=== PATIENT | female | born 1995 | race Caucasian/White ===

== ENCOUNTER 2016-12-03 01:34 | Emergency (ER) | payer SELFPAY ==
[~2016-12-03] VITALS: Ht 162.6 cm; Wt 55.8 kg
[2016-12-03 01:50] VITALS: BP 124/63; PULSE 84; RESP 13; TEMP 97.8; O2SAT 98
--- NOTE | 2016-12-03 01:50 | NUR ---
Patient to ER bed 6 to gown for evaluation. Side rails up. Report given to IFEANYI Harman.
--- NOTE | 2016-12-03 02:00 | NUR ---
Patient to ER C/O scratched throat. Patient states that she ate chicken nuggets and swallowed a bone which scratched her throat. Patient states that she still feels that she has something stuck in her throat. Patient is 14 weeks and states that she is "worried that the bone can get to the baby and harm it" AAOx4, unlabored breathing, no signs of acute distress.
--- NOTE | 2016-12-03 02:12 | NUR ---
ER MD Arreola at bedside for evaluation
--- NOTE | 2016-12-03 02:35 | NUR ---
Patient refused Xray. ER MD Arreola aware.
[2016-12-03] MEDS ORDERED: PREN-89 PO (02:51)
--- NOTE | 2016-12-03 02:52 | NUR ---
Patient refuses admission. ER MD Arreola aware.
--- NOTE | 2016-12-03 02:52 | NUR ---
Medication reconciliation completed with information provided by - verbal from patient. Any prior medication reconciliation on file was reviewed and corrected.
--- NOTE | 2016-12-03 02:57 | NUR ---
ER MD Arreola at bedside discussing the reason for admission and the risks of the medical conditions patient is experiencing.
--- NOTE | 2016-12-03 03:00 | NUR ---
Patient does not wish to proceed with medical care recommended by ER MD Arreola. Patient given information related to possible complications, up to and including , which could occur as a result of leaving hospital at this time. Patient verbalizes understanding of risks involved leaving against medical advice. Patient has signed AMA form.
[2016-12-03 03:01] LABS: BASOPHILS # (AUTO) 0.1 K/uL (0.0-0.2); BASOPHILS % (AUTO) 0.5 % (0.0-2.0); EOSINOPHILS # (AUTO) 0.1 K/uL (0.0-0.4); EOSINOPHILS % (AUTO) 1.1 % (0.0-4.0); HEMATOCRIT 37.2 % (36-48); HEMOGLOBIN 12.8 g/dL (12.0-16.0); LYMPHOCYTES # (AUTO) 2.7 K/uL (1.0-5.5); LYMPHOCYTES % (AUTO) 24.5 % (20.5-51.5); MEAN CORPUSCULAR HEMOGLOBIN 30 pg (27-31); MEAN CORPUSCULAR HGB CONC 34 % (32-36); MEAN CORPUSCULAR VOLUME 87 fL (79.0-98.0); MONOCYTES # (AUTO) 0.5 K/uL (0.0-1.0); MONOCYTES % (AUTO) 4.2 % (1.7-9.3); NEUTROPHILS # (AUTO) 7.7 K/uL (1.8-7.7); NEUTROPHILS % (AUTO) 69.7 % (40.0-70.0); PLATELET COUNT (AUTO) 298 K/uL (130-430); RED CELL DISTRIBUTION WIDTH 12.9 % (9.0-15.0); WHITE BLOOD COUNT (AUTO) 11.1 K/uL (4.8-10.8)
[2016-12-03 03:05] LABS: CALCIUM 8.8 mg/dL (8.4-11.0); CREATININE 0.48 mg/dL (0.55-1.30); POTASSIUM 3.3 mmol/L (3.5-5.1)
[2016-12-03 03:09] LABS: INR 0.9 (0.8-1.2); PROTHROMBIN TIME 9.6 SECS (9.5-12.5)
[2016-12-03 03:10] LABS: ALBUMIN 3.2 g/dL (3.4-4.8); TOTAL BILIRUBIN 0.1 mg/dL (0.0-1.0); TOTAL PROTEIN, SERUM 6.6 g/dL (6.4-8.3)
== END 2016-12-03 03:00 | disposition left against medical advice (07) ==
LOC: SED 01:34
DX: O9A.211 Injury, poisoning and certain other consequences of external causes complicating pregnancy, first trimester (principal); T17.228A Food in pharynx causing other injury, initial encounter; Z3A.14 14 weeks gestation of pregnancy; X58.XXXA Exposure to other specified factors, initial encounter; Y93.89 Activity, other specified; Y92.89 Other specified places as the place of occurrence of the external cause; Y99.8 Other external cause status
CPT/HCPCS: 36415; 80053; 84702-TC; 85025; 85610-TC; 99284